=== PATIENT | female | born 1935 | race Caucasian/White ===

== ENCOUNTER 2021-11-21 04:34 | Day surgery (SDC) | payer OTHER ==
[2021-11-21] MEDS ORDERED: ISOSULFAN BLUE 50 MG/5 ML VIAL SQ ONE (07:55)
[2021-11-21] MEDS ORDERED: ONDANSETRON *ODT* 4 MG TABLET ONE (08:27)
[2021-11-21] MEDS ORDERED: ONDANSETRON 4 MG TABLET PO ONE (08:30)
[2021-11-21 08:38] VITALS: BMI 22.8
[2021-11-21] MEDS ORDERED: ONDANSETRON *ODT* 4 MG TABLET SL ONE (10:15)
[2021-11-21] MEDS ORDERED: METHYLENE BLUE 50 MG/10 ML AMPUL ONE (10:48)
[2021-11-21] MEDS ORDERED: LIDOCAINE HCL 1%, 10 MG/ML (20ML VIAL) ONE (10:49)
[2021-11-21] MEDS ORDERED: MIDAZOLAM HCL 2 MG/2 ML SINGLE DOSE VIAL ONE (12:11)
[2021-11-21] MEDS ORDERED: FENTANYL CITRATE/PF 50 MCG/ML VIAL ONE ×2 (12:17→12:44)
[2021-11-21] MEDS ORDERED: PROPOFOL 20 ML ONE ×2 (12:17)
[2021-11-21] MEDS ORDERED: ceFAZolin SODIUM 1 GM VIAL IVPB ONE (12:30)
[2021-11-21] MEDS ORDERED: HYDROmorphone HCl 2 MG/ML VIAL ONE (12:59)
[2021-11-21] MEDS ORDERED: KETAMINE HCL 200 MG/20 ML VIAL ONE (13:00)
[2021-11-21] MEDS ORDERED: ACETAMINOPHEN 500 MG TABLET (FP) PO PRN (13:37)
[2021-11-21] MEDS ORDERED: ONDANSETRON 4 MG/2 ML VIAL IVPB PRN (13:37)
[2021-11-21] MEDS ORDERED: ALPRAZolam 0.25 MG TABLET PO ONE (13:37)
[2021-11-21] MEDS ORDERED: HYDROmorphone HCl 2 MG/ML VIAL IM PRN (13:39)
[2021-11-21] MEDS ORDERED: PROMETHAZINE HCL 25 MG/1 ML VIAL IVPUSH PRN (13:42)
[2021-11-21] MEDS ORDERED: ACETAMINOPHEN 1000 MG/100 ML BAG IVPB PRN (13:43)
[2021-11-21] MEDS ORDERED: LACTATED RINGERS SOLUTION 1,000 ML IV SCH (13:45)
[2021-11-21] MEDS ORDERED: ACETAMINOPHEN INJECTION 100 ML IVPB ONE (14:04)
[2021-11-21] MEDS ORDERED: oxyCODONE HCL 5 MG TABLET ONE (15:59)
[2021-11-21] MEDS ORDERED: oxyCODONE HCL 5 MG TABLET PO ONE (16:00)
[2021-11-21 16:03] VITALS: TEMP 97.7
[2021-11-21 20:06] VITALS: BP 105/57; PULSE 67
[2021-11-21] MEDS ORDERED: CEFAZOLIN 1 GM in DEXTROSE 5%-WATER 100 ML IVPB SCH (20:30)
== END 2021-11-21 19:45 | disposition home or self-care (01) ==
LOC: JASU-SURG 04:34
PROVIDERS: ATTEND Surgery
PROC: 0HTU0ZZ Resection of Left Breast, Open Approach (ICD-10-PCS; principal; 2021-11-21 10:00)
PROC: 07B60ZX Excision of Left Axillary Lymphatic, Open Approach, Diagnostic (ICD-10-PCS; 2021-11-21 10:00)
DX: D05.12 Intraductal carcinoma in situ of left breast (principal); N60.82 Other benign mammary dysplasias of left breast
CPT/HCPCS: 78195-TC; 88307-TC; 88342-TC; 94760; A9541; Q0162; Q9968